=== PATIENT | male | born 1945 | race Caucasian/White ===

== ENCOUNTER 2019-12-24 07:01 | Outpatient (NON) | payer MEDICARE, SELFPAY ==
[2019-12-25 14:38] LABS: SARS-CoV-2 RNA PCR Negative
== END 2019-12-24 07:02 ==
PROVIDERS: PCP Family Medicine; Visit Provider Family Medicine
DX: Z20.828 Contact with and (suspected) exposure to other viral communicable diseases (principal); J01.90 Acute sinusitis, unspecified
CPT/HCPCS: 87635; C9803; U0003

== ENCOUNTER 2020-05-17 15:38 | Outpatient (CLI) | payer MEDICARE, OTHER, SELFPAY ==
[2020-05-17 16:19] LABS: Alanine Aminotransferase 31 U/L (4-50); Albumin Level 4.2 g/dL (3.5-5.1); Alkaline Phosphatase 109 U/L (38-126); Anion Gap 8 mmol/L (8-16); Aspartate Amino Transferase 36 U/L (17-59); Basophils Absolute Auto 0.1 K/mm3 (0.0-0.1); Basophils Percent Auto 0.7 % (0.2-1.2); Blood Urea Nitrogen 11 mg/dL (9-20); Calcium 9.7 mg/dL (8.4-10.2); Carbon Dioxide 30 mmol/L (22-30); Chloride 105 mmol/L (98-107); Eosinophils Absolute Auto 0.6 K/mm3 (0-0.3); Eosinophils Percent Auto 7.6 % (0-4.4); Estimated Glomerular Filt Rate > 60; Glucose 91 mg/dL (75-110); Hematocrit 41.2 % (42.0-52.0); Hemoglobin 13.4 g/dL (14.0-18.0); Immature Granulocyte Absolute 0.03 K/mm3 (0.00-0.031); Immature Granulocyte Percent A 0.4 % (0-0.5); Lymphocytes Absolute Auto 1.12 K/mm3 (0.9-3.2); Lymphocytes Percent Auto 15.5 % (18.3-44.2); Mean Corpuscular HGB Conc 32.5 g/dl (32-36); Mean Corpuscular Hemoglobin 29.5 pg (26-34); Mean Corpuscular Volume 90.7 fl (80-100); Mean Platelet Volume 10.6 fl (7.4-10.4); Monocytes Absolute Auto 0.7 K/mm3 (0.1-0.6); Monocytes Percent Auto 10.2 % (2.6-8.5); Neutrophils Absolute Auto 4.7 K/mm3 (1.3-6.7); Neutrophils Percent Auto 65.6 % (45.5-73.1); Platelet Count Result 197 k/mm3 (150-375); Potassium 4.5 mmol/L (3.4-5.0); Red Blood Count 4.54 M/mm3 (4.6-6.20); Red Cell Distribution Width 13.6 % (11.5-14.5); Sodium 143 mmol/L (137-145); White Blood Count 7.2 K/mm3 (4.5-10.0)
== END 2020-05-17 15:39 | disposition home or self-care (01) ==
PROVIDERS: Family Provider Family Medicine; PCP Family Medicine; Visit Provider Internal Medicine Cardiovascular Disease
DX: R06.02 Shortness of breath (principal)
CPT/HCPCS: 36415; 80053; 85025